=== PATIENT | female | born 1995 | race African-American/Black ===

== ENCOUNTER 2018-01-05 06:10 | Inpatient (IN) ==
[2018-01-05] MEDS ORDERED: FAMOTIDINE 20 MG/2 ML VIAL IV ONE (06:22)
[2018-01-05] MEDS ORDERED: ceFAZolin 2,000 MG in PREMIX 1 EACH IV ONE (06:22)
[2018-01-05] MEDS ORDERED: CITRIC ACID/SODIUM CITRATE 30 ML UDCUP PO ONE (06:22)
[2018-01-05] MEDS ORDERED: LACTATED RINGERS 1,000 ML IV SCH (06:30)
[2018-01-05 06:55] LABS: Basophils % 0.1 % (0.0-0.8); Eosinophils # 0.3 10*3/uL (0.0-0.87); Eosinophils % 3.4 % (0.00-10.9); Hematocrit 30.5 VOL% (35.7-47.0); Hemoglobin 9.7 GM/DL (12.0-16.0); Immature Granulocytes % 0.4 %; Immature Granulocytes Absolute 0.03 #; Lymphocytes # 1.5 10*3/uL (1.4-4.0); Lymphocytes % 18.6 % (21.3-54.2); Mean Corpuscular HGB Conc 31.8 GM/DL (32-36); Mean Corpuscular Hemoglobin 24 PG (27-34); Mean Corpuscular Volume 76.3 FL (87-102); Mean Platelet Volume 10.3 FL (9.6-12.0); Monocytes # 0.6 10*3/uL (0.11-0.8); Monocytes % 7.1 % (1.7-12.7); Neutrophils # 5.5 10*3/uL (1.4-7.4); Neutrophils % 70.4 % (38.7-73.9); Platelet Count 278 T/CUMM (130-400); Red Cell Distribution Width 14.6 % (9.3-17.3); White Blood Count 7.9 T/CUMM (4-12)
[2018-01-05 07:39] LABS: Albumin 2.5 G/DL (3.4-5.0); Bilirubin,Total 0.5 MG/DL (0.2-1.0); Calcium 8.4 MG/DL (8.5-10.1); Osmolality,Calculated 271.7 MOS/KG (273-304); Potassium 3.9 MMOL/L (3.5-5.1); Total Protein 6.5 G/DL (6.4-8.3)
[2018-01-05] MEDS ORDERED: fentaNYL 2 MCG/ROPIV 0.2% EPID 0 ML EPIDURAL ONE (07:40)
[2018-01-05] MEDS ORDERED: OXYTOCIN 10 UNIT/ML VIAL ONE ×2 (07:41→10:06)
[2018-01-05] MEDS ORDERED: OXYTOCIN/LR 30 UNIT/1,000 ML BAG IV ONE (07:57)
[2018-01-05 09:56] LABS: Cord Arterial Blood HCO3 21.7 MMOL/L
[2018-01-05 10:00] LABS: Cord Venous Blood HCO3 22.7 MMOL/L; Cord Venous Blood PCO2 42.6 MMHG; Cord Venous Blood PO2 35.2
[2018-01-05] MEDS ORDERED: OXYTOCIN/LR 20 UNIT/1,000 ML BAG IV ONE ×2 (10:00→12:35)
[2018-01-05 10:16] LABS: Apearance,Urine CLEAR (Clear); Bilirubin,Urine Negative (Negative); Blood, Urine Negative (Negative); Glucose,Urine (UA) Negative (Negative); Ketones,Urine 5 mg/dL (Negative); Mucus,Urine Occasional /LPF (Occasional); Nitrite,Urine Negative (Negative); Protein,Urine Negative; RBC,Urine 1 /HPF (0-4); Urine Color Straw (Yellow); Urine Specific Gravity 1.006 (1.001-1.035); Urine Urobilinogen < 2.0 EU/DL (0.2-1.0); WBC,Urine <1 /HPF (0-6)
[2018-01-05] MEDS ORDERED: MORPHINE 10 MG/10 ML VIAL ONE (10:45)
[2018-01-05] MEDS ORDERED: SODIUM BICARBONATE 2.4 MEQ/5 ML VIAL ONE (10:50)
[2018-01-05] MEDS ORDERED: LIDOCAINE MPF 2% /EPI 20 ML VIAL ONE (10:50)
[2018-01-05] MEDS ORDERED: PHENYLEPHRINE 10 MG/1 ML VIAL IV ONE (10:50)
[2018-01-05] MEDS ORDERED: DEXAMETHASONE 10 MG/1 ML VIAL ONE (10:50)
[2018-01-05] MEDS ORDERED: ONDANSETRON 4 MG/2 ML VIAL ONE (10:50)
[2018-01-05] MEDS ORDERED: PROMETHAZINE 25 MG/1 ML VIAL ONE (10:50)
[2018-01-05] MEDS ORDERED: ACETAMINOPHEN 325 MG TABLET PO PRN (12:35)
[2018-01-05] MEDS ORDERED: RHO(D) IMMUNE GLOBULIN 300 MCG SYRINGE IM ONE (12:35)
[2018-01-05] MEDS ORDERED: ONDANSETRON 4 MG/2 ML VIAL IV PRN (12:35)
[2018-01-05] MEDS ORDERED: SIMETHICONE CHEW 80 MG TABLET PO PRN (12:35)
[2018-01-05] MEDS ORDERED: IBUPROFEN 800 MG TABLET PO PRN (12:35)
[2018-01-05] MEDS: diphenhydrAMINE 50 MG/1 ML VIAL IV PRN ×2 (14:48→20:11)
[2018-01-05] MEDS ORDERED: ceFAZolin 1,000 MG in SYRINGE 1 EACH IV SCH (16:00)
[2018-01-05] MEDS: ceFAZolin 1,000 MG in SYRINGE 1 EACH IV SCH (17:27)
[2018-01-05 17:31] LABS: Basophils % 0.1 % (0.0-0.8); Hematocrit 30.5 VOL% (35.7-47.0); Hemoglobin 9.5 GM/DL (12.0-16.0); Immature Granulocytes % 0.6 %; Immature Granulocytes Absolute 0.09 #; Lymphocytes # 0.8 10*3/uL (1.4-4.0); Lymphocytes % 5.6 % (21.3-54.2); Mean Corpuscular HGB Conc 31.1 GM/DL (32-36); Mean Corpuscular Hemoglobin 24 PG (27-34); Monocytes # 0.6 10*3/uL (0.11-0.8); Monocytes % 4.2 % (1.7-12.7); Neutrophils # 12.5 10*3/uL (1.4-7.4); Neutrophils % 89.5 % (38.7-73.9); Platelet Count 265 T/CUMM (130-400); Red Blood Count 3.91 MC/CUMM (3.8-5.5); Red Cell Distribution Width 14.6 % (9.3-17.3)
[2018-01-05] MEDS: LACTATED RINGERS 1,000 ML IV SCH (17:34)
[2018-01-05] MEDS ORDERED: DOCUSATE SODIUM 100 MG CAPSULE PO SCH (21:00)
[2018-01-06] MEDS: ceFAZolin 1,000 MG in SYRINGE 1 EACH IV SCH (01:36)
[2018-01-06] MEDS: LACTATED RINGERS 1,000 ML IV SCH (01:36)
[2018-01-06 06:22] LABS: Basophils % 0.2 % (0.0-0.8); Eosinophils # 0.1 10*3/uL (0.0-0.87); Eosinophils % 0.9 % (0.00-10.9); Hematocrit 28.2 VOL% (35.7-47.0); Hemoglobin 8.9 GM/DL (12.0-16.0); Immature Granulocytes % 0.5 %; Immature Granulocytes Absolute 0.06 #; Lymphocytes % 17.3 % (21.3-54.2); Mean Corpuscular HGB Conc 31.6 GM/DL (32-36); Mean Corpuscular Hemoglobin 24 PG (27-34); Mean Corpuscular Volume 76.8 FL (87-102); Mean Platelet Volume 10.1 FL (9.6-12.0); Monocytes # 0.9 10*3/uL (0.11-0.8); Neutrophils # 8.4 10*3/uL (1.4-7.4); Neutrophils % 73.1 % (38.7-73.9); Platelet Count 235 T/CUMM (130-400); Red Blood Count 3.67 MC/CUMM (3.8-5.5); Red Cell Distribution Width 14.6 % (9.3-17.3); White Blood Count 11.5 T/CUMM (4-12)
[2018-01-06] MEDS: MULTIVITAMIN (PRENATAL) TABLET PO SCH (08:48)
[2018-01-06] MEDS: MAGNESIUM HYDROXIDE SUSP 30 ML UDCUP PO PRN ×2 (08:48→20:37)
[2018-01-06] MEDS: FERROUS SULFATE 325 MG TABLET PO SCH ×2 (08:51→20:38)
[2018-01-06] MEDS: DOCUSATE SODIUM 100 MG/10 ML UDCUP PO SCH (22:01)
[2018-01-07] MEDS: LACTATED RINGERS 1,000 ML IV SCH ×2 (03:31→07:02)
[2018-01-07] MEDS: DOCUSATE SODIUM 100 MG/10 ML UDCUP PO SCH (08:26)
[2018-01-07] MEDS: MAGNESIUM HYDROXIDE SUSP 30 ML UDCUP PO PRN (08:26)
[2018-01-07] MEDS: FERROUS SULFATE 325 MG TABLET PO SCH (08:27)
[2018-01-07] MEDS: MULTIVITAMIN (PRENATAL) TABLET PO SCH (08:27)
[2018-01-07] MEDS ORDERED: MEASLES/MUMPS/RUBELLA VACCINE 0.5 ML VIAL SUBCUT ONE (15:36)
[2018-01-07 15:40] VITALS: BP 116/66
== END 2018-01-07 16:35 | disposition home or self-care (01) | DRG 540 ==
LOC: N.LDOUT 06:10 → N.LD 06:14 → N.OB 12:46
PROVIDERS: ADMIT Obstetrics & Gynecology; ATTEND Obstetrics & Gynecology
PROC: LDCSECT (ICD-10-PCS; 2018-01-05 11:00)

== ENCOUNTER 2020-09-18 07:01 | Inpatient (IN) ==
[2020-09-18] MEDS ORDERED: ceFAZolin 2,000 MG in PREMIX 1 EACH IV ONE (07:23)
[2020-09-18] MEDS ORDERED: FAMOTIDINE 20 MG/2 ML VIAL IV ONE (07:23)
[2020-09-18] MEDS ORDERED: CITRIC ACID/SODIUM CITRATE 30 ML UDCUP PO ONE (07:23)
[2020-09-18] MEDS ORDERED: OXYTOCIN 10 UNIT/ML VIAL IM ONE (07:24)
[2020-09-18] MEDS ORDERED: OXYTOCIN/LR 30 UNIT/1,000 ML BAG IV ONE (07:24)
[2020-09-18] MEDS: LACTATED RINGERS 1,000 ML IV SCH ×2 (07:41→08:29)
[2020-09-18 07:50] LABS: Basophils % 0.3 % (0.0-0.8); Eosinophils # 0.2 10*3/uL (0.0-0.87); Eosinophils % 2.9 % (0.00-10.9); Hematocrit 31.5 VOL% (35.7-47.0); Hemoglobin 10.2 GM/DL (12.0-16.0); Immature Granulocytes % 0.5 %; Immature Granulocytes Absolute 0.03 #; Lymphocytes # 1.3 10*3/uL (1.4-4.0); Lymphocytes % 22.1 % (21.3-54.2); Mean Corpuscular HGB Conc 32.4 GM/DL (32-36); Mean Corpuscular Volume 78.6 FL (87-102); Mean Platelet Volume 9.9 FL (9.6-12.0); Monocytes % 7.1 % (1.7-12.7); Neutrophils % 67.1 % (38.7-73.9); Platelet Count 279 T/CUMM (130-400); Red Blood Count 4.01 MC/CUMM (3.8-5.5); Red Cell Distribution Width 13.7 % (9.3-17.3); White Blood Count 5.8 T/CUMM (4-12)
[2020-09-18 08:02] LABS: PT Patient Result 10.3 SECS (9.8-11.9)
[2020-09-18] MEDS ORDERED: BUPIVACAINE SPINAL 0.75% 2 ML AMP SPINAL ONE (08:13)
[2020-09-18] MEDS ORDERED: ONDANSETRON 4 MG/2 ML VIAL ONE (08:13)
[2020-09-18] MEDS ORDERED: fentaNYL 100 MCG/2 ML VIAL ONE (08:13)
[2020-09-18] MEDS ORDERED: PHENYLEPHRINE 1 MG/10 ML SYRINGE IV ONE (08:13)
[2020-09-18] MEDS ORDERED: MORPHINE 10 MG/10 ML VIAL ONE (08:14)
[2020-09-18 08:18] LABS: Alanine Aminotransferase 11 U/L (13-56); Albumin 2.4 G/DL (3.4-5.0); Alkaline Phosphatase 158 U/L (45-117); Aspartate Amino Transferase 13 U/L (0-37); Bilirubin,Total < 0.39 MG/DL (0.2-1.0); Blood Urea Nitrogen 5 MG/DL (7-18); Calcium 8.5 MG/DL (8.5-10.1); Estimated Glom Filtration Rate 176 ML/MIN; Glucose 81 MG/DL (74-106); Osmolality,Calculated 270.7 MOS/KG (273-304); Total Protein 6.9 G/DL (6.4-8.3)
[2020-09-18] MEDS ORDERED: ceFAZolin 3,000 MG in SYRINGE 1 EACH IV ONE (08:19)
[2020-09-18] MEDS ORDERED: OXYTOCIN/LR 20 UNIT/1,000 ML BAG IV ONE ×2 (08:23→10:43)
[2020-09-18] MEDS ORDERED: miSOPROStoL 200 MCG TABLET ONE (08:23)
[2020-09-18] MEDS ORDERED: TRANEXAMIC ACID 1,000 MG/10 ML VIAL ONE (08:23)
[2020-09-18] MEDS ORDERED: CARBOPROST TROMETHAMINE 250 MCG/ML AMP IM ONE (08:24)
[2020-09-18] MEDS ORDERED: METHYLERGONOVINE 0.2 MG/1 ML AMP ONE (08:24)
[2020-09-18] MEDS ORDERED: BUPIVACAINE MPF 0.25% 30 ML VIAL ONE (09:48)
[2020-09-18] MEDS ORDERED: DEXAMETHASONE 4 MG/1 ML VIAL ONE (09:48)
[2020-09-18 10:21] LABS: Cord Venous Blood HCO3 21.2 MMOL/L; Cord Venous Blood PCO2 46.5 MMHG; Cord Venous Blood PO2 28.5
[2020-09-18 10:23] LABS: Bilirubin,Urine Negative (Negative); Blood, Urine Negative (Negative); Glucose,Urine (UA) Negative (Negative); Ketones,Urine 5 mg/dL (Negative); Nitrite,Urine Negative (Negative); Protein,Urine Negative; RBC,Urine <1 /HPF (0-4); Squamous Epithelial Cell,Urine Occasional /HPF (0-10); Urine Appearance CLEAR (Clear); Urine Color Colorless (Yellow); Urine Specific Gravity 1.005 (1.001-1.035); Urine Urobilinogen < 2.0 EU/DL (0.2-1.0); WBC,Urine 1 /HPF (0-6)
[2020-09-18 10:24] LABS: Cord Arterial Blood HCO3 19.1 MMOL/L
[2020-09-18] MEDS ORDERED: ACETAMINOPHEN 325 MG TABLET PO PRN (10:43)
[2020-09-18] MEDS ORDERED: ONDANSETRON 4 MG/2 ML VIAL IV PRN (10:43)
[2020-09-18] MEDS ORDERED: SIMETHICONE CHEW 80 MG TABLET PO PRN (10:43)
[2020-09-18] MEDS ORDERED: MAGNESIUM HYDROXIDE SUSP 30 ML UDCUP PO PRN (10:43)
[2020-09-18] MEDS ORDERED: RHO(D) IMMUNE GLOBULIN 300 MCG SYRINGE IM ONE (10:43)
[2020-09-18] MEDS ORDERED: LACTATED RINGERS 1,000 ML IV SCH (11:00)
[2020-09-18] MEDS: IBUPROFEN 800 MG TABLET PO PRN (16:37)
[2020-09-18] MEDS: ceFAZolin 1,000 MG in SYRINGE 1 EACH IV SCH (17:09)
[2020-09-18] MEDS: DOCUSATE SODIUM 100 MG CAPSULE PO SCH (21:13)
[2020-09-19] MEDS ORDERED: SODIUM CHLORIDE 0.9% 100 ML IV ONE (01:23)
[2020-09-19] MEDS: ceFAZolin 1,000 MG in SYRINGE 1 EACH IV SCH (01:28)
[2020-09-19] MEDS: DOCUSATE SODIUM 100 MG CAPSULE PO SCH ×2 (09:26→21:10)
[2020-09-19] MEDS: MULTIVITAMIN (PRENATAL) TABLET PO SCH (09:27)
[2020-09-19 15:21] LABS: Basophils % 0.3 % (0.0-0.8); Eosinophils # 0.2 10*3/uL (0.0-0.87); Eosinophils % 1.6 % (0.00-10.9); Hematocrit 33.2 VOL% (35.7-47.0); Hemoglobin 10.5 GM/DL (12.0-16.0); Immature Granulocytes % 0.6 %; Immature Granulocytes Absolute 0.06 #; Lymphocytes # 1.5 10*3/uL (1.4-4.0); Mean Corpuscular HGB Conc 31.6 GM/DL (32-36); Mean Platelet Volume 10.2 FL (9.6-12.0); Monocytes % 7.1 % (1.7-12.7); Neutrophils % 75.4 % (38.7-73.9); Platelet Count 281 T/CUMM (130-400); Red Blood Count 4.15 MC/CUMM (3.8-5.5); Red Cell Distribution Width 13.7 % (9.3-17.3); White Blood Count 10.2 T/CUMM (4-12)
[2020-09-20] MEDS: MULTIVITAMIN (PRENATAL) TABLET PO SCH (07:59)
[2020-09-20] MEDS: DOCUSATE SODIUM 100 MG CAPSULE PO SCH (08:01)
[2020-09-20 08:58] VITALS: BP 127/86
[2020-09-20] MEDS: IBUPROFEN 800 MG TABLET PO PRN (12:04)
== END 2020-09-20 14:30 | disposition home or self-care (01) | DRG 540 ==
LOC: N.LDOUT 07:01 → N.LD 07:02 → N.OB 09-19 15:00
PROVIDERS: ADMIT Obstetrics & Gynecology; ATTEND Obstetrics & Gynecology
PROC: LDCSECT (ICD-10-PCS; 2020-09-18 09:30)